=== PATIENT | male | born 1980 | race Two or more races ===

== ENCOUNTER 2025-05-04 13:38 | Emergency (ER) | payer OTHER, SELFPAY ==
[2025-05-04 13:51] VITALS: BMI 31.6
--- NOTE | 2025-05-04 13:53 | PC.NURSE ---
PATIENT BROUGHT TO ED VIA [facility] FOR CHEST PAIN AND ABDOMINAL PAIN SINCE THIS MORNING. PATIENT DENIES EATING THIS MORNING. PATIENT WITH [facility] AT BEDSIDE. PLACED ON MONITOR.
[2025-05-04 13:56] VITALS: BP 158/101; PULSE 64; RESP 16; TEMP 37; O2SAT 96
--- NOTE | 2025-05-04 13:57 | XR_ITS ---
Examination: CT abdomen with intravenous contrast CT pelvis with intravenous contrast 2-D coronal reconstructions 2-D sagittal reconstructions Date and time of exam:May 04, 2025, 1534 hrs. Indications: Generalized abdominal pain with nausea vomiting beginning this morning.. CTDI: vol (mGy) 10.9. DLP: (mGycm) 687. Technique: Multiple axial sections of the abdomen and pelvis have been obtained. 64 slice high-resolution scanner used. 3 mm axial sections have been obtained, post intravenous injection 60 cc [id number]. 2-D sagittal, coronal reconstructions obtained. Low dose protocols were performed. One or more of the following dose reduction techniques were used; automated exposure control, adjustment of the mA and/or KV according to patient size, use of iterative reconstruction technique. Findings: No focal liver or splenic lesion No gallstones No pancreatic or adrenal mass. Mild left hydronephrosis secondary to 3 mm distal left ureterovesical junction calculus Normal appendix No bowel obstruction Colonic diverticulosis No bladder mass No significant prostatomegaly Impression: Mild left hydronephrosis secondary to 3 mm distal left ureterovesical junction calculus
--- NOTE | 2025-05-04 13:58 | XR_ITS ---
Examination: AP chest single view Technique: AP portable semiupright chest single view Date and time: May 07, 2025, 1415 hrs. Indications: Shortness of breath chest pain beginning 2 days ago. Findings: Normal heart size Lungs are clear. The osseous structures are intact Impression: No active disease.
--- NOTE | 2025-05-04 13:58 | EKG_ITS ---
[facility] Test Date: 2025-05-04 Pat Name: LUZ ESQUIVEL Department: Room: - Gender: Male [employer]: : 1980 Requested By: Mary Alice Bran Order Number: [id number] Reading MD: Mary Alice Bran Measurements Intervals [place] Rate: 63 P: 27 NH: 180 QRS: 26 QRSD: 90 T: 42 QT: 413 QTc: 425 Interpretive Statements SINUS RHYTHM No previous ECG available for comparison /store/S0/[id number]/ecg/[id number].pdf
[2025-05-04] MEDS: ONDANSETRON INJ 2 MG/ML INJ 2 ML 4 MG IVP (14:17)
[2025-05-04] MEDS: MORPHINE SULF INJ 10 MG/ML VIAL 4 MG IVP ×2 (14:17→16:07)
[2025-05-04 14:20] LABS: Lactate (Lactic Acid) 1.8 mMol/L (0.4-2.0)
[2025-05-04 14:21] LABS: Basophils # (Auto) 0.0 Thou/mm3 (0.0-0.2); Basophils % (Auto) 0 % (0-2.5); Eosinophils # (Auto) 0.0 Thou/mm3 (0.0-0.5); Eosinophils % (Auto) 0 % (0-10); Hematocrit 47.1 % (41.0-53.0); Hemoglobin 16.1 g/dL (13.5-16.0); Immature Granulocytes Auto 0.06 Thou/mm3 (0.00-0.00); Lymphocytes # (Auto) 0.5 Thou/mm3 (1.0-4.8); Lymphocytes % (Auto) 4 % (10-50); Mean Corpuscular HGB Conc 34.2 g/dl (31.0-37.0); Mean Corpuscular Hemoglobin 30.6 pg (25.0-35.0); Mean Corpuscular Volume 89 fL (80-100); Monocytes # (Auto) 0.5 Thou/mm3 (0.0-0.8); Monocytes % (Auto) 4 % (0-12); Neutrophils # (Auto) 12.5 Thou/mm3 (1.8-7.7); Neutrophils % (Auto) 92 % (37-80); Nucleated Red Blood Cell # 0.00 Thou/mm3 (0.00-0.00); Nucleated Red Blood Cell % 0 /100 WBC (0); Platelet Count 281 Thou/mm3 (140-440); RDW Standard Deviation 42.0 fL (35.1-43.9); Red Blood Count 5.27 Miln/mm3 (4.50-5.90); White Blood Count 13.6 Thou/mm3 (3.8-10.6)
--- NOTE | 2025-05-04 14:21 | EDNOTE_ITS ---
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 He is currently incarcerated. He states he developed chest pain and diffuse abdominal pain this morning at around 6 or 7 AM. He endorses nausea without vomiting. No changes in bowel movements. No fevers or chills. No lower leg edema. Has no cough or chills. No fevers. No urinary complaints. He states he has not had symptoms like this before. He denies any history of surgery. He has no other acute complaints. Related Data Previous Rx's ?Medication ?Instructions ?Recorded ibuprofen 600 mg tablet 600 mg PO Q8H #14 tabs 05/04 tamsulosin 0.4 mg capsule (Flomax) 0.4 mg PO QDAY #14 caps 05/04/25 Allergies Allergy/AdvReac Type Severity Reaction Status Date / Time No Known Allergies Allergy Verified 05/04/25 14:00 Review of Systems Review of Systems Systems Reviewed: All systems reviewed, normal except as documented ED Exam General Limitations: Present no limitations General appearance: Present alert and in no apparent distress Head Head exam: Present atraumatic Eye Eye exam: Present normal appearance, PERRL and EOMI ENT ENT exam: Present normal exam, normal oropharynx and mucous membranes moist Neck Neck exam: Present normal inspection, full ROM and trachea midline Chest Chest inspection: Present normal inspection and symmetric chest wall rise Respiratory Respiratory exam: Present normal lung sounds bilaterally Cardiovascular Cardiovascular exam: Present regular rate, normal rhythm and normal heart sounds Abdominal Exam Abdominal exam: Present tenderness, guarding, rebound, rigidity and normal bowel sounds; Absent distention Extremities Exam Extremities exam: Present normal inspection and full ROM Back Exam Back exam: Present normal inspection and full ROM Neurological Exam Neurological exam: Present alert and oriented X3 Psychiatric Psychiatric exam: Present normal affect and normal mood Skin Skin exam: Present warm, dry, intact and normal color Course Quality Measures none Orders Category Date Time Status CT Screening NOW Care 05/04/25 13:58 Active EKG (ED ONLY) *Do not use* NOW Care 05/04/25 13:[address] abdomen pelvis w con Stat Exams 05/04/25 13:57 Completed EKG (ED Only) Stat Exams 05/04/25 13:58 Draft XR chest 1V Stat Exams 05/04/25 13:58 Completed BNP [B-Type Natriuretic Peptide] Stat Lab 05/04/25 14:12 Completed CBC Stat Lab 05/04/25 14:12 Completed CMP [Comprehensive Metabolic Panel] Stat Lab 05/04/25 14:12 Completed Lactic Acid [Lactate (Lactic Acid)] Stat Lab 05/04/25 14:12 Completed Lipase Stat Lab 05/04/25 14:12 Completed Mag [Magnesium] Stat Lab 05/04/25 14:12 Completed Troponin I Stat Lab 05/04/25 14:12 Completed UA, C/S IF [Urinalysis, C/S if Indicated] Stat Lab 05/04/25 16:35 Completed Acetaminophen Tab [Tylenol Tab] Med 05/04/25 17:27 Discontinued 650 mg PO X1 ONE Ketorolac Inj [Toradol Inj] Med 05/04/25 17:02 Discontinued 15 mg IVP X1 ONE Morphine Inj Med 05/04/25 13:57 Discontinued 4 mg IVP X1 ONE Morphine Inj Med 05/04/25 15:22 Discontinued 4 mg IVP X1 ONE Ondansetron Inj [Zofran Inj] Med 05/04/25 13:57 Discontinued 4 mg IVP X1 ONE Sodium Chloride 0.9% 1000 ml [Ns] 1,000 ml Med 05/04/25 17:02 Discontinued IV 999 mls/hr Tamsulosin HCl [Flomax] Med 05/04/25 17:02 Discontinued 0.4 mg PO X1 ONE Vital Signs Vital signs: Vital Signs Temperature 98.6 F 05/04/25 13:56 Pulse Rate 64 05/04/25 13:56 Respiratory Rate 16 05/04/25 13:56 Blood Pressure 158/101 H 05/04/25 13:56 Pulse Oximetry (%) 96 05/04/25 13:56 Oxygen Delivery Method Room Air 05/04/25 13:56 Chest Pain MDM Narrative MDM Narrative:: Patient is a 44-year-old male with no chronic medical history. He is currently incarcerated. He states he developed chest pain and diffuse abdominal pain this morning at around 6 or 7 AM. He endorses nausea without vomiting. No changes in bowel movements. No fevers or chills. No lower leg edema. Has no cough or chills. No fevers. No urinary complaints. He states he has not had symptoms like this before. He denies any history of surgery. He has no other acute complaints. On exam, patient is ill-appearing, he has mild abdominal rigidity and guarding. Vital signs are stable. Workup was initiated. Metabolic panel reveals mild hyperglycemia at 117, bilirubin is mildly elevated at 1.4, otherwise unremarkable. CT of the abdomen pelvis revealed a 3 mm at the left UVJ. Chest reveals clear expanded lungs without any mass or infiltrate. Troponin is negative Patient data External records reviewed:: None Clinical information provided by:: law enforcement Social determinants that could affect healthcare access:: none Patient has the following chronic illnesses:: n/a How is presenting disease/condition affected by chronic disease/condition?: no chronic disease Evaluation data The following diagnostics were reviewed and interpreted by me:: lab results, radiology exam(s) and EKG tracing(s) Lab and/or radiology exams considered but not ordered:: n/a Interpretation Summary: 3 m stone in the left UVJ. Medications / Prescriptions Medications or Prescriptions considered but not ordered:: n/a Medication administrations:: Medication Administration History Discontinued Medications Acetaminophen (Acetaminophen 325 Mg Tablet) 650 mg PO X1 ONE Stop: 05/04/25 17:28 Last Admin: 05/04/25 17:31 Dose: 650 mg Documented By: ELI Sodium Chloride (Ns) 1,000 mls @ 999 mls/hr IV .Q1H1M ONE Stop: 05/04/25 18:02 Last Admin: 05/04/25 17:26 Dose: 999 mls/hr Documented By: ELI Ketorolac Tromethamine (Ketorolac Inj 30 Mg/Ml Vial) 15 mg IVP X1 ONE Stop: 05/04/25 17:03 Last Admin: 05/04/25 17:25 Dose: 15 mg Documented By: ELI Morphine Sulfate (Morphine Sulf Inj 10 Mg/Ml Vial) 4 mg IVP X1 ONE Stop: 05/04/25 13:58 Last Admin: 05/04/25 14:17 Dose: 4 mg Documented By: Morphine Sulfate (Morphine Sulf Inj 10 Mg/Ml Vial) 4 mg IVP X1 ONE Stop: 05/04/25 15:23 Last Admin: 05/04/25 16:07 Dose: 4 mg Documented By: ELI Ondansetron HCl (Ondansetron Inj 2 Mg/Ml Inj 2 Ml) 4 mg IVP X1 ONE; Protocol Stop: 05/04/25 13:58 Last Admin: 05/04/25 14:17 Dose: 4 mg Documented By: KAYLENE Tamsulosin HCl (Tamsulosin Hcl 0.4 Mg Capsule) 0.4 mg PO X1 ONE Stop: 05/04/25 17:03 Last Admin: 05/04/25 17:25 Dose: 0.4 mg Documented By: ELI see above Consultations Consultation(s) initiated? (list below): No Diagnosis Chest Pain Differential Diagnosis: unstable angina pectoris, atypical chest pain, costochondritis and biliary colic Most likely diagnosis given after review of the tests above:: ureterolithiasis Admission Indicated Admission indicated?: not indicated Admission Request Was there a request for admission?: No Disposition Plan Disposition Plan: Discharge Discharge Attestation Discharge Attestation: The patient and all family members were given an opportunity to ask questions and understood the discharge instructions. Discharge instructions specifically effects, indications for sooner follow up or return to the emergency department, and the expected course of current diagnosis. Patient condition: Stable Discharge Plan Plan Patient Disposition: HOME (Self Care) Patient condition on transfer: Stable Prescriptions/Referrals Prescriptions/Med Rec: New tamsulosin [Flomax] 0.4 mg capsule 0.4 mg PO QDAY Qty: 14 0RF ibuprofen 600 mg tablet 600 mg PO Q8H Qty: 14 0RF Referrals: Keith([facility])Micki MD [Primary Care Provider] - In 1 week Problem List Clinical Impression: Kidney stone Patient/Caregiver Discharge Instructions Education Materials: ED Kidney Stone w/ Colic Additional Instructions: - Increase oral hydration. -Use the provided medication as prescribed. We are prescribing Flomax which will help dilate your ureters to help you pass your kidney stone. We are also prescribing ibuprofen to help with pain and inflammation. Given the size the location of your kidney stone, that should pass. - Please return to the emergency room at anytime for any worsening or emergent changes. Print Language: Bol[place]ian Stand Alone Forms: [facility] Award Info., Patient Portal Info Letter
[2025-05-04 15:03] LABS: Troponin I < 0.002 ng/mL (0.0-0.045)
[2025-05-04 15:04] LABS: Alanine Aminotransferase 31 U/L (10-49); Albumin, Serum 4.7 gm/dL (3.5-5.0); Albumin/Globulin Ratio 1.7 (1.2-2.2); Alkaline Phosphatase 101 U/L (46-116); Anion Gap 10 (7-16); Aspartate Amino Transferase 24 U/L (0-34); BUN/Creatinine Ratio 12 Ratio (12-20); Bilirubin,Total 1.4 mg/dL (0.3-1.2); Blood Urea Nitrogen 14 mg/dL (9-23); Calcium 10.4 mg/dL (8.3-10.6); Calcium (Corrected) 10.4 mg/dL (8.5-10.1); Carbon Dioxide 23.8 mMol/L (20.0-31.0); Chloride 102 mMol/L (98-107); Creatinine (Component) 1.2 mg/dL (0.6-1.3); Estimated Creatinine Clearance 103.8 mL/min (>60); Globulin 2.8 gm/dL (2.3-3.5); Glucose 117 mg/dL (74-106); Lipase 24 U/L (12-53); Magnesium 1.8 mg/dL (1.6-2.6); Osmolality,Calculated 273 (275-295); Potassium 4.7 mMol/L (3.4-5.1); Sodium 136 mMol/L (136-145); Total Protein 7.5 gm/dL (5.7-8.2); eGFR > 60 See Note
[2025-05-04 15:19] LABS: B-Type Natriuretic Peptide < 20 pg/mL (0-100)
[2025-05-04 16:21] VITALS: BP 151/100; PULSE 80; RESP 17; TEMP 36.7; O2SAT 97
[2025-05-04 16:46] LABS: Collection Type, Urine Voided
[2025-05-04 16:53] LABS: Bilirubin,Urine Negative (Negative); Blood,Urine 3+ (Negative); Color,Urine Yellow (Lt Yel-Yel); Culture Indicated,Urine Not Indicated; Glucose, Urine Negative (Negative); Ketones,Urine Trace (Negative); Leukocyte Esterase,Urine Negative (Negative); Nitrite,Urine Negative (Negative); PH,Urine 7.0 (5.0-7.0); Protein,Urine Trace (Neg - Trace); RBC,Urine 57 /hpf (0-3); Specific Gravity,Urine 1.045 (1.001-1.035); Squamous Epithelial Cell,Urine 1 /hpf (0-5); Urobilinogen,Urine Negative mg/dL (0.0-1.0); WBC,Urine 2 /hpf (0-5)
[2025-05-04 17:05] LABS: Clarity,Urine Hazy (Clear/Hazy)
[2025-05-04] MEDS: TAMSULOSIN HCL 0.4 MG CAPSULE PO (17:25)
[2025-05-04] MEDS: KETOROLAC INJ 30 MG/ML VIAL 15 MG IVP (17:25)
[2025-05-04] MEDS: SODIUM CHLORIDE 0.9% 1000 ML 1,000 ML 999 ML IV (17:26)
[2025-05-04] MEDS: ACETAMINOPHEN 325 MG TABLET 650 MG PO (17:31)
[2025-05-04 18:00] VITALS: BP 115/67; PULSE 71; RESP 18; TEMP 37.1; O2SAT 99
== END 2025-05-04 18:31 | disposition home or self-care (01) ==
PROVIDERS: Physician Assistant Medical; Emergency Provider Emergency Medicine; PCP Internal Medicine
DX: N20.0 Calculus of kidney (principal)
CPT/HCPCS: 36415; 71045; 74177; 80053; 81001; 83605; 83690; 83735; 83880; 84484; 85025; 93005; 96361; 96374; 96375; 96376; 99283; A4649; J1885; J2270; J2405; J7030; Q9967; A9270